=== PATIENT | female | born 1950 | race Caucasian/White ===

== ENCOUNTER 2020-06-11 19:00 | Emergency (ER) | payer MEDICARE, OTHER, SELFPAY ==
[2020-06-11 19:04] VITALS: BP 184/84; PULSE 89; RESP 14; TEMP 37; O2SAT 100; BMI 20.9
--- NOTE | 2020-06-11 19:08 | DI.RAD.S_ITS ---
PROCEDURE: XR WRIST RT MIN 3V INDICATIONS: fall onto right wrist, Pain TECHNIQUE: For views of the wrist were acquired. COMPARISON: None. FINDINGS: Bones: Diffuse osteopenia. Degenerative changes of the 1st carpometacarpal joint and radiocarpal joint. No definite fractures or dislocations. 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 Its position likely related to patient positioning. No suspicious bony lesions. Scaphoid view: Scaphoid appears intact. Scapholunate interval is maintained. Soft tissues: No suspicious soft tissue calcifications. IMPRESSION: Soft tissue swelling of the right wrist, predominantly dorsally without definite underlying acute fracture. 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 Its positioning likely related to imaging technique. Recommend immobilization and repeat imaging in 10-14 days. Findings were discussed with Dr. Tran at 9:16 p.m.. Dictated by: Tyrell Maria M.D. on 06/11/2020 at 21:03 Approved by: Tyrell Maria M.D. on 06/11/2020 at 21:16
--- NOTE | 2020-06-11 20:49 | ED.UPPEXIN ---
HPI - Extremity Injury (Upper) General Chief Complaint: Extremity Injury, Upper Stated Complaint: FALL RIGHT HAND INJURY Time Seen by Provider: 06/11/20 19:05 Source: patient Mode of arrival: Ambulatory Limitations: no limitations History of Present Illness HPI narrative: 69F non smoker with non contributory medical history presents with the chief complaint of fall with pain in right wrist. She fell because she tripped on something on the ground and fell on her outstretched wrist and was in minimal pain, and even completed her activities. She denies any numbness, tingling or weakness. She denies any head neck or back pain. She denies any shoulder or elbow pain. She started having increasing pain after taking shower and then taking ibuprofen and then came to see us. She denies any numbness, tingling or weakness. She does have full but painful range of motion and does not point to any specific part of the dorsal aspect of her wrist but the whole thing in general. She feels much better now and thinks that elevating it in the waiting room might have helped MD complaint: injury to: right Other Extremity Injury: Right: wrist Other injuries: none Handedness: right Place: home Severity: moderate Relieving factors: none Exacerbating factors: movement of extremity Context: fall Associated symptoms: denies other symptoms Related Data Allergies Allergy/AdvReac Type Severity Reaction Status Date / Time nitrofurantoin Allergy Severe Hives Verified 06/11/20 19:07 [From Macrodantin] Review of Systems Constitutional Constitutional: Denies chills, Denies fatigue, Denies fever(s), Denies frequent falls, Denies lethargy and Denies weakness Eyes Eyes: Denies change in vision, Denies eye discharge, Denies irritation and Denies loss of vision ENT Ears, Nose, Mouth, and Throat: Denies change in voice, Denies dizziness, Denies neck pain, Denies sore throat and Denies throat swelling Cardiovascular Cardiovascular: Denies chest pain, Denies irregular heart rhythm, Denies lightheadedness, Denies palpitations, Denies dyspnea, Denies dyspnea on exertion and Denies orthopnea Respiratory Respiratory: Denies cough, Denies dyspnea, Denies dyspnea on exertion and Denies wheezing Gastrointestinal Gastrointestinal: Denies abdominal pain, Denies change in bowel habits, Denies diarrhea, Denies nausea and Denies vomiting Musculoskeletal Musculoskeletal: Reports arthralgias, Denies neck pain and Denies numbness Integumentary/Breasts Skin/Breast: Denies pruritus, Denies erythema, Denies rash and Denies wounds Neurologic Neurologic: Denies behavioral changes, Denies confusion, Denies dizziness, Denies frequent falls, Denies loss of vision, Denies numbness and Denies weakness Psychiatric Psychiatric: Denies anxiety, Denies behavioral changes, Denies confusion, Denies depression, Denies homicidal ideation and Denies suicidal ideation Endocrine Endocrine: Denies fatigue, Denies flushing and Denies palpitations Hematologic/Lymphatic Hematologic/Lymphatic: Denies easy bruising Allergic/Immunologic Allergic/Immunologic: Denies urticaria, Denies throat swelling and Denies wheezing Patient History Social History Smoking Status: Never smoker Smoking Status: Never smoker alcohol intake frequency: 0-2 drinks per day Substance Use Type: does not use Exam Narrative Exam Narrative: GENERAL: [69] year old patient appears stated age. Well-nourished, well-developed patient, in mild distress. HEAD: Atraumatic. Normocephalic. EYES: Pupils equal round and reactive. Extraocular motions intact. No scleral icterus. No injection or drainage. ENT: Nose without bleeding, purulent drainage. Throat without erythema, tonsillar hypertrophy or exudate. Airway patent. NECK: Trachea midline. Non tender CARDIOVASCULAR: Regular rate and rhythm without murmurs, gallops, or rubs. RESPIRATORY: Clear to auscultation. Breath sounds equal bilaterally. No wheezes, rales, or rhonchi. GASTROINTESTINAL: Abdomen soft, non-tender, nondistended. EXTREMITIES: Splint removed (she bought her own) and no obvious deformity. Mild edema on dorsal surface of hand/wrist. She has full ROM, no numbness or tingling. No pain in anatomic snuff box. No pain with axial loading. No specific bony point tenderness BACK: Nontender without deformity or crepitance. No flank tenderness. NEURO: AOx3. SKIN: No rash or erythema of visible areas Initial Vital Signs Initial Vital Signs: Vital Signs Temperature 98.6 F 06/11/20 19:04 Pulse Rate 89 06/11/20 19:04 Respiratory Rate 14 06/11/20 19:04 Blood Pressure 184/84 H 06/11/20 19:04 Pulse Oximetry 100 06/11/20 19:04 Procedures Orthopedic Splinting/Casting Injury #1: Side: right Upper Extremity Injury Location: wrist and hand Upper Extremity Immobilizer: thumb spica Post splinting neuro exam: intact Post splinting vascular exam: intact Placed by: Nursing Course Orders Ordered: ED Orders 06/11/20 19:08 XR wrist RT min 3V Stat Vital Signs Vital signs: Vital Signs - 8 hr 06/11/20 19:04 06/11/20 21:23 Temperature 98.6 F Pulse Rate 89 77 Respiratory Rate 14 Blood Pressure 184/84 H 186/78 H Pulse Oximetry 100 97 MDM - Extremity Injury (Upper) Imaging Data Extremity x-ray #1: Radiologist's Impression: [address] [id number] XRay Report Signed Patient: Ayse Carbajal GMR#: [id number] : 8Acct:[id number] Age/Sex: 69 / FDate of Service: 06/11/20 Loc: ED Accession Number: [id number] Procedure: XR wrist RT min 3V Ordering Provider: Eder Tran D.O. PROCEDURE: XR WRIST RT MIN 3V INDICATIONS: fall onto right wrist, Pain TECHNIQUE: For views of the wrist were acquired. COMPARISON: None. FINDINGS: Bones: Diffuse osteopenia. Degenerative changes of the 1st carpometacarpal joint and radiocarpal joint. No definite fractures or dislocations. 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 Its position likely related to patient positioning. No suspicious bony lesions. Scaphoid view: Scaphoid appears intact. Scapholunate interval is maintained. Soft tissues: No suspicious soft tissue calcifications. IMPRESSION: Soft tissue swelling of the right wrist, predominantly dorsally without definite underlying acute fracture. 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 Its positioning likely related to imaging technique. Recommend immobilization and repeat imaging in 10-14 days. Findings were discussed with Dr. Tran at 9:16 p.m.. Dictated by: Tyrell Maria M.D. on 06/11/2020 at 21:03 Approved by: Tyrell Maria M.D. on 06/11/2020 at 21:16 Discharge Plan Departure Patient Disposition: Home Clinical Impression: Sprain and strain of wrist Discharge Date/Time: 06/11/20 21:34 Instructions: DI for Wrist Sprain Activity Restrictions/Additional Instructions: *You have been diagnosed with [right wrist sprain ] *What to do: *Take medications as directed *Follow up with your primary care provider in 2-3 days, call for an appointment. Let them know you were seen in the Emergency Department and that we ask that you be seen in follow up *Return to ER if you should have any new, worsening or concerning symptoms
[2020-06-11 21:23] VITALS: BP 186/78; PULSE 77; O2SAT 97
== END 2020-06-11 21:34 | disposition home or self-care (01) ==
PROVIDERS: Emergency Provider Emergency Medicine
DX: S63.501A Unspecified sprain of right wrist, initial encounter (principal); S66.911A Strain of unspecified muscle, fascia and tendon at wrist and hand level, right hand, initial encounter; W01.0XXA Fall on same level from slipping, tripping and stumbling without subsequent striking against object, initial encounter
CPT/HCPCS: 73110; 99283